=== PATIENT | male | born 1960 | race Caucasian/White ===

== ENCOUNTER 2022-08-20 15:38 | Emergency (ER) | payer MEDICAID ==
[~2022-08-20] VITALS: Ht 170.2 cm; Wt 82.0 kg
[2022-08-20 15:50] VITALS: BP 129/93
[2022-08-20] MEDS ORDERED: ONDANSETRON HCL 4MG/2ML INJ IV ONE (16:30)
[2022-08-20] MEDS ORDERED: IOHEXOL-350 100 ML BOTTLE ONE (19:09)
[2022-08-20 20:17] LABS: HEMATOCRIT. 47.9 % (42.0-52.0); HEMOGLOBIN. 16.2 g/dL (14.0-18.0); MEAN CORPUSCULAR HEMOGLOBIN 29.3 pg (28.0-32.0); MEAN PLATELET VOLUME 8.8 fl (7.4-10.4); PLATELET 247 x1000/uL (130-400); RED BLOOD CELL COUNT 5.51 mill/uL (4.7-6.1); RED CELL DISTRIBUTION WIDTH 13.3 % (11.6-14.6)
[2022-08-20 20:34] LABS: CHLORIDE 100 mEq/L (98-107)
[2022-08-20 20:44] LABS: ETHANOL BLOOD < 10 mg/dL
[2022-08-20 20:45] LABS: PLATELET ESTIMATE NORMAL
== END 2022-08-20 22:57 | disposition home or self-care (01) ==
LOC: ER 15:38
DX: R42 Dizziness and giddiness (principal); R11.0 Nausea; I10 Essential (primary) hypertension; Z98.890 Other specified postprocedural states
CPT/HCPCS: 36415; 71045; 71275; 74174; 80053; 80320; 83690; 83880; 84484; 85025; 93005; 99285; Q9967; G0480